=== PATIENT | male | born 1955 | race Caucasian/White ===

== ENCOUNTER 2019-08-13 08:53 | Emergency (ER) | payer OTHER ==
[~2019-08-13] VITALS: Ht 180.3 cm; Wt 111.1 kg
[2019-08-13] MEDS ORDERED: LEVO200T9 PO (09:08)
[2019-08-13] MEDS ORDERED: LIDOCAINE HCL 1% 20 ML VIAL IJ ONE (09:15)
[2019-08-13] MEDS ORDERED: METHOCARBAMOL 500 MG TABLET PO ONE (09:15)
[2019-08-13] MEDS ORDERED: ACETAMINOPHEN/CODEINE 300-30 MG TABLET PO ONE (09:15)
[2019-08-13] MEDS ORDERED: TDAP DIPH,PERTUSS,TET VAC/PF 0.5 ML DISP.SYRIN IM ONE ×2 (09:15→09:19)
[2019-08-13] MEDS ORDERED: ACETAMINOPHEN/CODEINE 300-30 MG TABLET ONE (09:19)
[2019-08-13] MEDS ORDERED: LIDOCAINE HCL 1% 20 ML VIAL ONE (09:19)
[2019-08-13] MEDS ORDERED: METHOCARBAMOL 500 MG TABLET ONE (09:19)
[2019-08-13 10:09] LABS: BASOPHILS % (AUTO) 0.2 % (0.0-2.0); EOSINOPHILS % (AUTO) 0.2 % (0.0-7.0); HEMATOCRIT 45.1 % (36.7-47.1); HEMOGLOBIN 15.5 g/dL (12.5-16.3); LYMPHOCYTES % (AUTO) 6.5 % (20.5-51.5); MEAN CORPUSCULAR HEMOGLOBIN 30.8 uug (23.8-33.4); MEAN CORPUSCULAR HGB CONC 34 g/dL (32.5-36.3); MEAN CORPUSCULAR VOLUME 89.7 fL (73.0-96.2); MONOCYTES # (AUTO) 1.1 K/uL (2.0-10.0); MONOCYTES % (AUTO) 7.1 % (0.0-11.0); NEUTROPHILS # (AUTO) 13.5 K/uL (1.8-8.9); PLATELET COUNT (AUTO) 203 K/uL (152-348); RED BLOOD CELL COUNT(AUTO) 5.02 MIL/uL (4.06-5.63); WHITE BLOOD COUNT (AUTO) 15.6 K/uL (3.6-10.2)
[2019-08-13 10:17] LABS: CREATININE 1.1 mg/dL (0.6-1.3)
[2019-08-13] MEDS ORDERED: IOHEXOL 350 100 ML INFUS..BTL ONE (12:25)
[2019-08-13] MEDS ORDERED: SWABABLE VALVE TRANSFER SET EA MC ONE (12:25)
[2019-08-13] MEDS ORDERED: IV NORMAL SALINE 250 ML IV ONE (12:25)
--- NOTE | 2019-08-13 14:05 | NUR ---
Removed IVs intact, site okay, bandaged. Gave pt RX and d/c instructions, pt verbalized understanding.
[2019-08-13 15:00] VITALS: BP 142/95
== END 2019-08-13 14:07 | disposition home or self-care (01) ==
LOC: ER 08:53
DX: S01.81XA Laceration without foreign body of other part of head, initial encounter (principal); S80.211A Abrasion, right knee, initial encounter; S09.90XA Unspecified injury of head, initial encounter; E03.9 Hypothyroidism, unspecified; W20.8XXA Other cause of strike by thrown, projected or falling object, initial encounter; Y93.01 Activity, walking, marching and hiking; Y92.89 Other specified places as the place of occurrence of the external cause; Y99.8 Other external cause status
CPT/HCPCS: 12013; 36415; 70450; 71045; 71275; 72125; 73110; 73564; 80048; 82962; 84484; 85025; 85379; 85610; 90471; 90715; 93005; 99284; J3490; Q9967; 70030-TC; A4217; A4663; J7050